=== PATIENT | female | born 1990 | race Caucasian/White ===

== ENCOUNTER 2018-01-02 07:40 | Emergency (ER) | payer MEDICAID ==
[~2018-01-02] VITALS: Ht 157.5 cm; Wt 53.7 kg
[~2018-01-02 07:40] MED LIST: ELVI1TAB2 PO
[2018-01-02 07:47] VITALS: BP 153/92
--- NOTE | 2018-01-02 07:50 | NUR ---
PT AMBULATED TO BED 3
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
--- NOTE | 2018-01-02 07:57 | NUR ---
DR ALBERT FINISHED EVALUATING AT BEDSIDE
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
[2018-01-02] MEDS ORDERED: KETOROLAC 60 MG/2 ML VIAL IM ONE (08:15)
[2018-01-02 08:36] VITALS: BP 132/98
== END 2018-01-02 08:36 | disposition home or self-care (01) ==
LOC: MED 07:40
DX: S09.8XXA Other specified injuries of head, initial encounter (principal); S80.12XA Contusion of left lower leg, initial encounter; S80.11XA Contusion of right lower leg, initial encounter; S40.022A Contusion of left upper arm, initial encounter; T71.9XXA Asphyxiation due to unspecified cause, initial encounter; I10 Essential (primary) hypertension; F17.210 Nicotine dependence, cigarettes, uncomplicated; Y08.89XA Assault by other specified means, initial encounter; Y93.89 Activity, other specified; Y92.89 Other specified places as the place of occurrence of the external cause; Y99.8 Other external cause status
CPT/HCPCS: 81025; 96372; 99283; J1885

== ENCOUNTER 2018-02-11 05:05 | Emergency (ER) | payer MEDICAID ==
[~2018-02-11] VITALS: Ht 167.6 cm; Wt 51.3 kg
--- NOTE | 2018-02-11 05:05 | NUR ---
TOSHIA ANDREWS PREOWEN. TAKEN TO BED 9. [place] [employer] AT BEDSIDE Addendum: 02/11/18 at 0512 by LEANDRA PT [facility]
[2018-02-11 05:06] VITALS: BP 134/91
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
--- NOTE | 2018-02-11 05:07 | NUR ---
Dr. Tovar evaluating patient at bedside.
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
--- NOTE | 2018-02-11 05:10 | NUR ---
[place] [employer] AT BEDSIDE.
[2018-02-11] MEDS: KETOROLAC 30 MG/ML VIAL IVP ONE (05:22)
[2018-02-11 05:30] VITALS: BP 137/89
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
== END 2018-02-11 05:30 ==
LOC: MED 05:05
DX: S40.212A Abrasion of left shoulder, initial encounter (principal); R03.0 Elevated blood-pressure reading, without diagnosis of hypertension; Y04.2XXA Assault by strike against or bumped into by another person, initial encounter; Y93.89 Activity, other specified; Y99.8 Other external cause status; Y92.89 Other specified places as the place of occurrence of the external cause
CPT/HCPCS: 96374; 99284; J1885; 99283